=== PATIENT | female | born 1975 | race Asian ===

== ENCOUNTER 2023-02-09 11:17 | Emergency (ER) | payer OTHER ==
[~2023-02-09] VITALS: Ht 162.6 cm; Wt 68.0 kg
[2023-02-09 11:27] VITALS: BP_SYST 133
--- NOTE | 2023-02-09 12:00 | NUR ---
Patient to ER bed 07 to gown for evaluation. Side rails up. Report given to MAURICE IZQUIERDO.
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
[2023-02-09 12:57] LABS: BILIRUBIN,URINE NEGATIVE (NEGATIVE); BLOOD, URINE NEGATIVE (NEGATIVE); CLARITY/URINE CLEAR (CLEAR); COLOR,URINE YELLOW (YELLOW); GLUCOSE,URINE NEGATIVE (NEGATIVE); KETONES,URINE NEGATIVE (NEGATIVE); LEUKOCYTE ESTERASE ,URINE NEGATIVE (NEGATIVE); NITRITE, URINE NEGATIVE (NEGATIVE); PROTEIN URINE NEGATIVE (NEGATIVE); UROBILINOGEN,URINE 0.2 (0.2-1.0)
[2023-02-09] MEDS ORDERED: LIDOCAINE PATCH 5% 1 EA TP ONE (13:15)
--- NOTE | 2023-02-09 13:16 | NUR ---
ER at bedside examining patient.
--- NOTE | 2023-02-09 14:00 | NUR ---
Lidocaine patch applied to lumbar region.
[2023-02-09] MEDS ORDERED: NAPR-1172 PO (15:03)
[2023-02-09] MEDS ORDERED: ACET-2634 PO (15:03)
[2023-02-09] MEDS ORDERED: DICL20GE TP (15:03)
[2023-02-09] MEDS ORDERED: METH-634 PO (15:04)
--- NOTE | 2023-02-09 15:14 | NUR ---
Patient given written and verbal discharge instructions and verbalizes understanding. ER MD Mukherjee discussed with patient the results and treatment provided. ID arm band removed. IV catheter removed intact and dressing applied, no active bleeding. Rx sent to pharmacy on file. Patient educated on pain management and to follow up with PMD. Opportunity for questions provided and answered. Medication side effect fact sheet provided.
== END 2023-02-09 15:14 | disposition home or self-care (01) ==
LOC: SED 11:17
DX: S16.1XXA Strain of muscle, fascia and tendon at neck level, initial encounter (principal); S29.012A Strain of muscle and tendon of back wall of thorax, initial encounter; S80.01XA Contusion of right knee, initial encounter; I10 Essential (primary) hypertension; Z79.899 Other long term (current) drug therapy; V89.2XXA Person injured in unspecified motor-vehicle accident, traffic, initial encounter; Y93.89 Activity, other specified; Y92.89 Other specified places as the place of occurrence of the external cause; Y99.8 Other external cause status
CPT/HCPCS: 72040-TC; 72080-TC; 73564; 81003; 99284